=== PATIENT | male | born 1955 | race Caucasian/White ===

== ENCOUNTER 2024-01-20 22:55 | Inpatient (IN) ==
[2024-01-21 01:09] LABS: ABS Lymphocytes 0.6 10^3/uL (1.0-4.8); ABS Monocytes 0.9 10^3/uL (0.0-1.1); ABS Nucleated RBC 0.01 10^3/ul; Eosinophil % 0.2 %; Hematocrit 42.5 % (38-53); Hemoglobin 14.4 g/dL (13.2-16.3); Mean Corpuscular Hemoglobin 33.1 pg (27-33); Mean Corpuscular Hgb Conc 33.9 g/dL (31-36); Mean Corpuscular Volume 97.6 fL (80-97); Mean Platelet Volume 8.7 fL (7.5-11.2); Nucleated Red Blood Cells % 0.1 %/100WBC (0.0-0.8); Platelet Count 147 10^3/uL (150-450); Red Blood Count 4.35 10^6/uL (4.06-5.63); Red Cell Distribution Width 14.6 % (12-17); White Blood Count 8.5 10^3/uL (3.6-10.2)
[2024-01-21 01:50] LABS: Albumin 3.7 g/dL (3.2-5.2); Albumin/Globulin Ratio 1.6 (1-3); C Reactive Protein 4.78 mg/L (<8.01); Creatinine, Serum 0.7 mg/dL (0.67-1.17); Globulin 2.3 g/dL (2-4); Potassium 4.3 mmol/L (3.5-5.0); eGFR CKD-EPI 101.6 (>60)
[2024-01-21 02:25] LABS: High Sensitivity Troponin 1 Hr 721 pg/mL (<20)
[2024-01-21] MEDS: Enoxaparin 100 MG/ML SYR SUBCUT ONE (06:08)
[2024-01-21] MEDS: Enoxaparin 100 MG/ML SYR SUBCUT SCH (08:01)
[2024-01-21 08:23] LABS: HDL Cholesterol 40.1 mg/dL
[2024-01-21] MEDS ORDERED: Sulfur Hexaflouride MICROSPHR 25 MG VIAL ONE (08:52)
[2024-01-21] MEDS ORDERED: Enoxaparin 100 MG/ML SYR SUBCUT SCH (14:00)
[2024-01-21] MEDS: Metoprolol Tartrate 5 mg VIAL 5 ml VIAL (1 mg/ml) IV PRN (20:04)
[2024-01-22 04:53] LABS: Hematocrit 40.5 % (38-53); Hemoglobin 13.8 g/dL (13.2-16.3); INR 1.18 (0.83-1.13); Mean Corpuscular Hemoglobin 33.1 pg (27-33); Mean Corpuscular Hgb Conc 34.1 g/dL (31-36); Mean Corpuscular Volume 97.1 fL (80-97); Platelet Count 150 10^3/uL (150-450); Red Blood Count 4.17 10^6/uL (4.06-5.63); Red Cell Distribution Width 14.2 % (12-17); White Blood Count 4.8 10^3/uL (3.6-10.2)
[2024-01-22 05:17] LABS: Calcium 8.9 mg/dL (8.6-10.3); Creatinine, Serum 0.54 mg/dL (0.67-1.17); Magnesium 1.9 mg/dL (1.9-2.7); Potassium 4.5 mmol/L (3.5-5.0); eGFR CKD-EPI 109.9 (>60)
[2024-01-22] MEDS: NS 0.9% 1000 ml BAG 1,000 ML IV SCH ×2 (05:32→16:19)
[2024-01-22] MEDS ORDERED: Heparin 1,000 UNIT/ML 10 ml (10,000 UNITS) CATHLAB/DIALYSIS ONE ×2 (13:59→14:14)
[2024-01-22] MEDS ORDERED: VERAPAMIL 2.5 MG/ML 2 ML VIAL ** 5 mg/2 ml ONE (13:59)
[2024-01-22] MEDS ORDERED: Lidocaine 1% MPF 5 ML VIAL ONE (13:59)
[2024-01-22] MEDS ORDERED: Heparin 2 UNITS/ML IVPREMIX 2,000 UNIT/1,000 ML BAG IV ONE (14:00)
[2024-01-22] MEDS ORDERED: nitroGLYCERIN DRIP 25,000 MCG/250 ML BTL ONE (14:00)
[2024-01-22] MEDS ORDERED: Iohexol 350 (CONTRAST) 100 ML PAK IV ONE ×2 (14:00→14:42)
[2024-01-22] MEDS ORDERED: Midazolam 5 mg/5 ml VIAL 1 mg/ml 5 ml VIAL (5 mg) ONE (14:13)
[2024-01-22] MEDS ORDERED: Heparin 2 UNITS/ML 1000 mls 1,000 ML IV ONE (14:14)
[2024-01-22] MEDS ORDERED: fentaNYL 100 mcg/2 ml 50 MCG/ML VIAL ONE (14:14)
[2024-01-22] MEDS ORDERED: Phenylephrine 40 mcg/mL 10mL (400mcg) SYRINGE ONE (14:57)
[2024-01-22] MEDS: Magnesium Sulfate 2 gm BAG 2 GM/50 ML BAG ONE (22:02)
[2024-01-23] MEDS: Metoprolol Tartrate 5 mg VIAL 5 ml VIAL (1 mg/ml) IV PRN (00:45)
[2024-01-23 04:42] LABS: ABS Eosinophils 0.2 10^3/uL (0.0-0.5); ABS Monocytes 0.6 10^3/uL (0.0-1.1); ABS Neutrophils 3.6 10^3/uL (1.5-7.6); Eosinophil % 3.8 %; Hematocrit 39.4 % (38-53); Hemoglobin 13.6 g/dL (13.2-16.3); Lymphocyte % 17.9 %; Mean Corpuscular Hemoglobin 33.4 pg (27-33); Mean Corpuscular Hgb Conc 34.4 g/dL (31-36); Mean Corpuscular Volume 97.2 fL (80-97); Nucleated Red Blood Cells % 0.1 %/100WBC (0.0-0.8); Platelet Count 131 10^3/uL (150-450); Red Blood Count 4.06 10^6/uL (4.06-5.63); Red Cell Distribution Width 14.7 % (12-17); White Blood Count 5.4 10^3/uL (3.6-10.2)
[2024-01-23 05:38] LABS: Calcium 8.7 mg/dL (8.6-10.3); Creatinine, Serum 0.44 mg/dL (0.67-1.17); Magnesium 1.8 mg/dL (1.9-2.7); Potassium 4.3 mmol/L (3.5-5.0); eGFR CKD-EPI 116.9 (>60)
[2024-01-23 07:34] VITALS: BP 118/74
[2024-01-23] MEDS: Magnesium Sulfate 2 gm BAG 2 GM/50 ML BAG ONE (08:02)
[2024-01-23] MEDS: Magnesium Sulfate 2 gm BAG 2 GM/50 ML BAG IVPB ONE (08:02)
[2024-01-23 09:03] LABS: TSH Ultra Thyroid Stim Horm 2.96 mcIU/mL (0.34-5.60)
== END 2024-01-23 10:32 | disposition home or self-care (01) | DRG 281 ==
LOC: ED 22:55 → ICU 01-21 01:29 → EDHOLD 01-21 01:29 → SUATTDRO 01-21 01:29 → ICU 01-21 07:46
PROVIDERS: ADMIT Internal Medicine; ATTEND Surgery Surgical Critical Care

== ENCOUNTER 2024-02-08 01:08 | Inpatient (IN) ==
[2024-02-08 01:44] LABS: Urine Appearance Clear; Urine Bilirubin Negative (Negative); Urine Blood Negative (Negative); Urine Color Colorless; Urine Glucose Negative (Negative); Urine Ketones Negative (Negative); Urine Nitrite Negative (Negative); Urine Protein Negative (Negative); Urine Specific Gravity 1.007 (1.002-1.030); Urine Urobilinogen Negative (Negative); Urine pH 6.5 (5.0-8.0)
[2024-02-08 02:16] LABS: ABS Basophils 0.1 10^3/uL (0.0-0.1); ABS Eosinophils 0.1 10^3/uL (0.0-0.5); ABS Lymphocytes 1.7 10^3/uL (1.0-4.8); ABS Monocytes 0.7 10^3/uL (0.0-1.1); ABS Neutrophils 2.8 10^3/uL (1.5-7.6); ABS Nucleated RBC 0.01 10^3/ul; Eosinophil % 2.7 %; Hematocrit 43.4 % (38-53); Hemoglobin 14.9 g/dL (13.2-16.3); Lymphocyte % 31.1 %; Mean Corpuscular Hgb Conc 34.2 g/dL (31-36); Mean Corpuscular Volume 96.4 fL (80-97); Nucleated Red Blood Cells % 0.1 %/100WBC (0.0-0.8); Platelet Count 205 10^3/uL (150-450); Red Cell Distribution Width 14.1 % (12-17); White Blood Count 5.4 10^3/uL (3.6-10.2)
[2024-02-08 02:29] LABS: INR 1.47 (0.83-1.13)
[2024-02-08 02:34] LABS: Albumin 3.8 g/dL (3.2-5.2); Albumin/Globulin Ratio 1.3 (1-3); Calcium 9.5 mg/dL (8.6-10.3); Creatinine, Serum 0.52 mg/dL (0.67-1.17); Globulin 2.9 g/dL (2-4); Magnesium 1.9 mg/dL (1.9-2.7); Total Bilirubin 0.7 mg/dL (0.2-1.0); Total Protein 6.7 g/dL (6.4-8.9); eGFR CKD-EPI 111.2 (>60)
[2024-02-08 02:48] LABS: TSH Ultra Thyroid Stim Horm 4.68 mcIU/mL (0.34-5.60)
[2024-02-08 03:31] LABS: High Sensitivity Troponin 1 Hr 23 pg/mL (<20)
[2024-02-08] MEDS: Amiodarone 400 mg TAB PO ONE (13:16)
[2024-02-08] MEDS: Amiodarone 400 mg TAB PO SCH (21:37)
[2024-02-09 05:09] LABS: ABS Basophils 0.1 10^3/uL (0.0-0.1); ABS Eosinophils 0.2 10^3/uL (0.0-0.5); ABS Lymphocytes 1.4 10^3/uL (1.0-4.8); ABS Monocytes 0.5 10^3/uL (0.0-1.1); ABS Neutrophils 2.4 10^3/uL (1.5-7.6); ABS Nucleated RBC 0.01 10^3/ul; Eosinophil % 4.3 %; Hematocrit 42.2 % (38-53); Hemoglobin 14.4 g/dL (13.2-16.3); Lymphocyte % 30.3 %; Mean Corpuscular Hemoglobin 32.6 pg (27-33); Mean Corpuscular Hgb Conc 34.1 g/dL (31-36); Mean Corpuscular Volume 95.6 fL (80-97); Mean Platelet Volume 9.3 fL (7.5-11.2); Nucleated Red Blood Cells % 0.3 %/100WBC (0.0-0.8); Platelet Count 175 10^3/uL (150-450); Red Blood Count 4.42 10^6/uL (4.06-5.63); Red Cell Distribution Width 14.2 % (12-17); White Blood Count 4.7 10^3/uL (3.6-10.2)
[2024-02-09 05:55] LABS: Calcium 8.8 mg/dL (8.6-10.3); Creatinine, Serum 0.54 mg/dL (0.67-1.17); Magnesium 1.7 mg/dL (1.9-2.7); Potassium 4.1 mmol/L (3.5-5.0); eGFR CKD-EPI 109.9 (>60)
[2024-02-09] MEDS: Magnesium Sulfate 2 gm BAG 2 GM/50 ML BAG IVPB ONE (08:38)
[2024-02-10 04:12] LABS: ABS Basophils 0.1 10^3/uL (0.0-0.1); ABS Eosinophils 0.2 10^3/uL (0.0-0.5); ABS Lymphocytes 1.5 10^3/uL (1.0-4.8); ABS Monocytes 0.6 10^3/uL (0.0-1.1); ABS Neutrophils 3.1 10^3/uL (1.5-7.6); Eosinophil % 4.2 %; Hematocrit 41.3 % (38-53); Hemoglobin 14.3 g/dL (13.2-16.3); Lymphocyte % 27.2 %; Mean Corpuscular Hemoglobin 32.8 pg (27-33); Mean Corpuscular Hgb Conc 34.5 g/dL (31-36); Mean Platelet Volume 9.4 fL (7.5-11.2); Nucleated Red Blood Cells % 0.1 %/100WBC (0.0-0.8); Platelet Count 175 10^3/uL (150-450); Red Blood Count 4.34 10^6/uL (4.06-5.63); Red Cell Distribution Width 13.9 % (12-17); White Blood Count 5.6 10^3/uL (3.6-10.2)
[2024-02-10 04:59] LABS: Calcium 8.8 mg/dL (8.6-10.3); Creatinine, Serum 0.64 mg/dL (0.67-1.17); Potassium 4.2 mmol/L (3.5-5.0); eGFR CKD-EPI 104.4 (>60)
[2024-02-10] MEDS: dilTIAZem 30 MG TAB PO SCH (07:29)
[2024-02-11 04:36] LABS: Hematocrit 40.2 % (38-53); Mean Corpuscular Hemoglobin 33.3 pg (27-33); Mean Corpuscular Hgb Conc 34.8 g/dL (31-36); Mean Corpuscular Volume 95.7 fL (80-97); Mean Platelet Volume 9.3 fL (7.5-11.2); Platelet Count 158 10^3/uL (150-450); Red Blood Count 4.21 10^6/uL (4.06-5.63); Red Cell Distribution Width 14.1 % (12-17); White Blood Count 5.1 10^3/uL (3.6-10.2)
[2024-02-11 05:21] LABS: Calcium 8.7 mg/dL (8.6-10.3); Creatinine, Serum 0.5 mg/dL (0.67-1.17); Magnesium 1.8 mg/dL (1.9-2.7); Potassium 4.3 mmol/L (3.5-5.0); eGFR CKD-EPI 112.5 (>60)
[2024-02-11] MEDS: Magnesium Sulfate 2 gm BAG 2 GM/50 ML BAG IVPB ONE (06:15)
[2024-02-12 04:50] LABS: Hematocrit 42.5 % (38-53); Hemoglobin 14.8 g/dL (13.2-16.3); Mean Corpuscular Hgb Conc 34.8 g/dL (31-36); Mean Corpuscular Volume 94.8 fL (80-97); Mean Platelet Volume 9.2 fL (7.5-11.2); Platelet Count 148 10^3/uL (150-450); Red Blood Count 4.49 10^6/uL (4.06-5.63); Red Cell Distribution Width 13.9 % (12-17); White Blood Count 4.4 10^3/uL (3.6-10.2)
[2024-02-12 06:17] LABS: C Reactive Protein 3.04 mg/L (<8.01); Magnesium 1.9 mg/dL (1.9-2.7)
[2024-02-12 12:05] LABS: Rapid COVID-19 Molecular Undetected (Undetected)
[2024-02-12 16:08] VITALS: BP 116/96
== END 2024-02-12 17:45 | disposition short-term general hospital (02) | DRG 309 ==
LOC: ED 01:08 → SUATTDRO 04:04 → EDHOLD 04:04 → ICU 04:12
PROVIDERS: ADMIT Physician Assistant Surgical; ATTEND Student in an Organized Health Care Education/Training Program